=== PATIENT | male | born 1945 | race Caucasian/White ===

== ENCOUNTER 2018-01-14 07:56 | Day surgery (SDC) | payer OTHER, BC ==
[2018-01-11 08:08] VITALS: BMI 22.5
[2018-01-14] MEDS ORDERED: PROPOFOL 20 ML ONE ×2 (08:15→08:16)
[2018-01-14] MEDS ORDERED: LIDOCAINE HCL/PF 2% SDV 5ML VIAL ONE (08:16)
[2018-01-14 13:23] VITALS: TEMP 97.5
[2018-01-14 13:27] VITALS: BP 104/62; PULSE 54
== END 2018-01-14 11:40 | disposition home or self-care (01) ==
LOC: FASU-ENDO 07:56
PROVIDERS: ATTEND Internal Medicine Gastroenterology
PROC: 0DJD8ZZ Inspection of Lower Intestinal Tract, Via Natural or Artificial Opening Endoscopic (ICD-10-PCS; principal; 2018-01-14 10:30)
DX: Z86.010 Personal history of colon polyps (principal); K57.30 Diverticulosis of large intestine without perforation or abscess without bleeding
CPT/HCPCS: 82962